=== PATIENT | female | born 1975 | race Two or more races ===

== ENCOUNTER 2017-02-04 22:44 | Emergency (ER) | payer OTHER ==
[~2017-02-04] VITALS: Ht 162.6 cm; Wt 61.2 kg
--- NOTE | 2017-02-05 00:04 | NUR ---
Patient discharged to home in stable conditon. Written and verbal after care instructions given. Patient verbalizes understanding of instructions.
== END 2017-02-05 00:05 | disposition home or self-care (01) ==
LOC: ER 22:46
DX: R10.10 Upper abdominal pain, unspecified (principal); V43.62XA Car passenger injured in collision with other type car in traffic accident, initial encounter; Y93.89 Activity, other specified; Y92.410 Unspecified street and highway as the place of occurrence of the external cause; Y99.9 Unspecified external cause status
CPT/HCPCS: 71020; 99284; A4663